=== PATIENT | female | born 1950 | race Caucasian/White ===

== ENCOUNTER → 2017-09-25 | Outpatient (CLI) | payer MEDICARE ==
--- NOTE | 2017-09-25 12:53 | MR ---
EXAMINATION TYPE: MR knee RT wo con DATE OF EXAM: 09/25/2017 12:28 PM COMPARISON: NONE HISTORY: Pain in right knee TECHNIQUE: Multiplanar, multisequence imaging of the right knee is performed. FINDINGS: MEDIAL MENISCUS: Anterior is intact without tear. Oblique tear posterior horn medial meniscus with ex tension to the tibial surface. LATERAL MENISCUS: Anterior and posterior horns are intact without tear. CRUCIATE LIGAMENTS: The anterior and posterior cruciate ligaments are intact and unremarkable. COLLATERAL LIGAMENTS: The medial collateral ligament and lateral collateral ligament complex are intact and unremarkable. EXTENSOR MECHANISM: Visualized quadriceps and patellar tendons are intact. EFFUSION: There is a small suprapatellar joint effusion. POPLITEAL CYST: Gonzalez's cyst noted which measures approximately 3.6 cm in craniocaudal dimension. TRICOMPARTMENT SPACES: Mild degenerative narrowing medial tibiofemoral joint space and patellofemoral joint space. CARTILAGE: The articular cartilage is maintained without abnormal signal or full-thickness defect. BONE MARROW SIGNAL: No focal abnormal marrow signal is appreciated: OTHER: No additional significant abnormality is appreciated. IMPRESSION: 1. Oblique tear posterior horn medial meniscus with extension to the tibial surface. 2. Gonzalez's cyst. 3. Degenerative osteoarthritis.
== END | disposition home or self-care (01) ==
LOC: RADMRIMAIN 11:48
PROVIDERS: ATTEND Orthopaedic Surgery
DX: S83.241A Other tear of medial meniscus, current injury, right knee, initial encounter (principal); M17.11 Unilateral primary osteoarthritis, right knee; M71.21 Synovial cyst of popliteal space [Baker], right knee

== ENCOUNTER 2017-11-08 10:50 | Emergency (ER) | payer MEDICARE ==
[2017-11-08] MEDS ORDERED: SODIUM CHLORIDE 0.9% 1,000 ML IV ONE (11:47)
[2017-11-08] MEDS ORDERED: ACETAMINOPHEN TAB 500 MG TAB PO STA (11:47)
[2017-11-08] MEDS ORDERED: ONDANSETRON 4 MG/2 ML VIAL IVP STA (11:47)
[2017-11-08 12:19] LABS: Basophils % (A) 0 %; Eosinophils # (A) 0.4 k/uL (0-0.7); Eosinophils % (A) 8 %; HCT 33.9 % (34.0-46.0); HGB 11.1 gm/dL (11.4-16.0); Lymphocytes # (A) 1.3 k/uL (1.0-4.8); Lymphocytes % (A) 27 %; MCHC 32.7 g/dL (31.0-37.0); MCV 88.9 fL (80.0-100.0); Mean Platelet Volume 9.1; Monocytes # (A) 0.4 k/uL (0-1.0); Monocytes % (A) 8 %; Neutrophils # (A) 2.5 k/uL (1.3-7.7); Neutrophils % (A) 53 %; Platelet Count 126 k/uL (150-450); RBC 3.81 m/uL (3.80-5.40); RDW 13.9 % (11.5-15.5); WBC 4.7 k/uL (3.8-10.6)
[2017-11-08 12:31] LABS: INR 3.2 (<1.2); Prothrombin Time 28.4 sec (9.0-12.0)
[2017-11-08 12:33] LABS: Albumin 3.1 g/dL (3.5-5.0); Calcium 8.9 mg/dL (8.4-10.2); Potassium 4.8 mmol/L (3.5-5.1); Total Bilirubin 0.3 mg/dL (0.2-1.3); Total Protein 5.5 g/dL (6.3-8.2)
--- NOTE | 2017-11-08 12:43 | CT ---
EXAMINATION TYPE: CT brain [place] con DATE OF EXAM: 11/08/2017 COMPARISON: Previous CT of the brain dated 02/07/2010. HISTORY: Fall CT DLP: 1749.5 mGycm Automated exposure control for dose reduction was used. TECHNIQUE: CT scan of the head and cervical spine are performed without contrast. FINDINGS: BRAIN: There are generalized changes of sulcal prominence and ventriculomegaly, compatible with atrop hic change. There is diffuse periventricular white matter lucency, compatible with chronic white osman er ischemic change. There is no focal lesion, mass effect or midline shift identified. I do not see e vidence of intracranial blood. There is chronic mucoperiosteal thickening involving the right maxillary sinus. The remainder the par anasal sinuses and mastoids are clear. The bony calvarium is intact. IMPRESSION: 1. NO ACUTE INTRACRANIAL ABNORMALITY. 2. ATROPHIC CHANGE. 3. CHRONIC WHITE MATTER ISCHEMIC CHANGE. 4. 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 CERVICAL SPINE: Visualized portions of the lungs are clear. 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 The proximal de scending thoracic aorta measures 3.1 cm. Prevertebral soft tissues are unremarkable. Vertebral body height and alignment are maintained. Atlantoaxial relationships are normal. There is m ild degenerative disc disease at C5-6. There is mild uncovertebral joint disease at this level. The f acets are unremarkable. No definite protrusion is seen. There is an incomplete arch of C1, a normal variant. No fractures are identified. There is left-sided intervertebral foraminal narrowing at C5-6 IMPRESSION: 1. NO ACUTE OSSEOUS LESION. 2. INCOMPLETE ARCH OF C1, A NORMAL VARIANT. 3. MILD DEGENERATIVE CHANGE. 4. LEFT-SIDED INTERVERTEBRAL FORAMINAL NARROWING, C5-6.
--- NOTE | 2017-11-08 13:11 | XR ---
EXAMINATION TYPE: XR shoulder complete RT , 3 VIEWS DATE OF EXAM ORDERED: 11/08/2017 HISTORY: Pain. COMPARISON: None. FINDINGS: No fracture, dislocation or other acute osseous lesion is seen. There are mild degenerativ e changes in the right AC joint. IMPRESSION: 1. NO ACUTE OSSEOUS LESION. 2. MILD DEGENERATIVE CHANGE, RIGHT AC JOINT.
--- NOTE | 2017-11-08 13:12 | ED ---
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 She has a headache no blurred vision no chest pain no shortness of breath this fall was accident there was no loss of consciousness neck injury to the upper or lower extremities no symptoms of TIA or CVA - Related Data Home Medications Medication Instructions Recorded Confirmed Aspirin [Adult Low Dose Aspirin EC] 81 mg PO QAM 12/19/16 11/08/17 Atorvastatin [Lipitor] 20 mg PO HS 12/19/16 11/08/17 Benazepril HCl 10 mg PO HS 12/19/16 11/08/17 Escitalopram [Lexapro] 20 mg PO HS 12/19/16 11/08/17 Ranitidine HCl [Zantac] 150 mg PO QAM 12/19/16 11/08/17 Venlafaxine HCl [Effexor XR] 150 mg PO QAM 12/19/16 11/08/17 amLODIPine [Norvasc] 5 mg PO HS 12/19/16 11/08/17 metFORMIN HCL 1,000 mg PO HS 12/19/16 11/08/17 Warfarin Sodium 2 mg PO MOWETHSA 11/08/17 11/08/17 Warfarin Sodium 4 mg PO SUTUFR 11/08/17 11/08/17 Allergies Allergy/AdvReac Type Severity Reaction Status Date / Time No Known Allergies Allergy Verified 11/08/17 12:42 Review of Systems ROS Statement: Those systems with pertinent positive or pertinent negative responses have been documented in the HPI. ROS Other: All systems not noted in ROS Statement are negative. Past Medical History Past Medical History: Diabetes Mellitus, Hyperlipidemia, Hypertension Additional Past Medical History / Comment(s): new onset diabetes type 10 dec 2016 , blood clots History of Any Multi-Drug Resistant Organisms: None Reported Past Surgical History: Cholecystectomy Past Anesthesia/Blood Transfusion Reactions: No Reported Reaction Past Psychological History: Anxiety Smoking Status: Former smoker General Exam - General Exam Comments Initial Comments: General: The patient is awake and alert, in no distress, and does not appear acutely ill. gCS is 15 Skin: Skin is warm and dry, noticed some coronary bit of a bruising on the right side of the neck at the level of C5 and C6 and she has the bruises over the deltoid and the right side and over the superior part of the scapula Eye: Pupils are equal, round and reactive to light, extra-ocular movements are intact; there is normal conjunctiva bilaterally. Ears, nose, mouth and throat: There are moist mucous membranes and no oral lesions. Neck: The neck is is tender at C5 and C6 Cardiovascular: There is a regular rate and rhythm. No murmur, rub or gallop is appreciated. Respiratory: To auscultation bilateral, no wheezing no rhonchi no distress respiratory rubi noticed Gastrointestinal: Soft, non-distended, non-tender abdomen without masses or organomegaly noted. There is no rebound or guarding present. Bowel sounds are unremarkable. Back: There is no tenderness to palpation in the midline. There is no obvious deformity. Musculoskeletal: Normal ROM, no tenderness, There is no pedal edema. There is no calf tenderness or swelling. No cords were appreciated. Neurological: CN II-XII intact, Cranial nerves III through XII are intact. There are no obvious motor or sensory deficits. Coordination appears grossly intact. Speech is normal. Psychiatric: Cooperative, appropriate mood & affect, normal judgment. Limitations: no limitations Course Vital Signs 11/08/17 10:54 Temperature 97.2 F L Pulse Rate 66 Respiratory 17 Rate Blood Pressure 128/59 O2 Sat by Pulse 99 Oximetry Reassessment was done head CT is normal no subdural or epidural noticed cervical spine is without any bony injury INR is 3.2 CBC and comp his metabolic panel are unremarkable him and during reassessment shoulder x-ray was reviewed shoulder x-ray ruled out any fracture Medical Decision Making - Lab Data Result diagrams: 11/08/17 12:07 11/08/17 12:07 Lab Results 11/08/17 11/08/17 11/08/17 Range/Units 12:07 12:07 12:07 WBC 4.7 (3.8-10.6) k/uL RBC 3.81 (3.80-5.40) m/uL Hgb 11.1 L (11.4-16.0) gm/dL Hct 33.9 L (34.0-46.0) % MCV 88.9 (80.0-100.0) fL MCH 29.0 (25.0-35.0) pg MCHC 32.7 (31.0-37.0) g/dL RDW 13.9 (11.5-15.5) % Plt Count 126 L (150-450) k/uL Neutrophils % 53 % Lymphocytes % 27 % Monocytes % 8 % Eosinophils % 8 % Basophils % 0 % Neutrophils # 2.5 (1.3-7.7) k/uL Lymphocytes # 1.3 (1.0-4.8) k/uL Monocytes # 0.4 (0-1.0) k/uL Eosinophils # 0.4 (0-0.7) k/uL Basophils # 0.0 (0-0.2) k/uL PT 28.4 H (9.0-12.0) sec INR 3.2 H (<1.2) Sodium 144 (137-145) mmol/L Potassium 4.8 (3.5-5.1) mmol/L Chloride 109 H (98-107) mmol/L Carbon Dioxide 25 (22-30) mmol/L Anion Gap 10 mmol/L BUN 23 H (7-17) mg/dL Creatinine 0.93 (0.52-1.04) mg/dL Est GFR (CKD-EPI)AfAm 74 (>60 ml/min/1.73 sqM) Est GFR (CKD-EPI)NonAf 64 (>60 ml/min/1.73 sqM) Glucose 97 (74-99) mg/dL Calcium 8.9 (8.4-10.2) mg/dL Total Bilirubin 0.3 (0.2-1.3) mg/dL AST 19 (14-36) U/L ALT 26 (9-52) U/L Alkaline Phosphatase 71 (38-126) U/L Total Protein 5.5 L (6.3-8.2) g/dL Albumin 3.1 L (3.5-5.0) g/dL Disposition Clinical Impression: Fall, Concussion, Neck injury, Shoulder contusion Disposition: HOME SELF-CARE Condition: Good Instructions: Fall Prevention for Older Adults (ED) Additional Instructions: Is advised to take Tylenol 1 g by mouth every 6 when necessary, follow-up with the family doctor within the next 2-3 days or come back to ER if symptoms get worse Referrals: Elizabeth Rutledge MD [Primary Care Provider] - 1-2 days
[2017-11-08 13:35] VITALS: BP 127/65; PULSE 57; RESP 16; TEMP 97.8
== END 2017-11-08 13:30 | disposition home or self-care (01) ==
LOC: EC 10:50
DX: S06.0X0A Concussion without loss of consciousness, initial encounter (principal); S40.011A Contusion of right shoulder, initial encounter; S10.93XA Contusion of unspecified part of neck, initial encounter; J32.9 Chronic sinusitis, unspecified; E11.9 Type 2 diabetes mellitus without complications; E78.5 Hyperlipidemia, unspecified; I10 Essential (primary) hypertension; F41.9 Anxiety disorder, unspecified; Z87.891 Personal history of nicotine dependence; Z79.01 Long term (current) use of anticoagulants; Z79.82 Long term (current) use of aspirin; Z79.84 Long term (current) use of oral hypoglycemic drugs; Z79.899 Other long term (current) drug therapy; W18.09XA Striking against other object with subsequent fall, initial encounter
CPT/HCPCS: 36415; 80053; 85025; 85610; 73030; 72125; 70450; 99284; 96374; 96361; J2405

== ENCOUNTER → 2018-01-23 | Outpatient (CLI) | payer MEDICARE ==
--- NOTE | 2018-01-23 13:08 | MM ---
Reason for exam: screening (asymptomatic). Baseline mammogram. Physical Findings: Nurse did not find any significant physical abnormalities on exam. MG 3D Screening Mammo W/Cad Bilateral CC and MLO view(s) were taken. There are scattered fibroglandular densities. Benign calcifications in the left breast. Inferior medial keratosis corresponds to a superficial mass on 3D after physical exam correlation. These results were verbally communicated with the patient and result sheet given to the patient on 01/23/18. ASSESSMENT: Benign, BI-RAD 2 RECOMMENDATION: Routine screening mammogram of both breasts in 1 year.
--- NOTE | 2018-01-23 13:18 | BD ---
EXAMINATION TYPE: Axial Bone Density DATE OF EXAM: 01/23/2018 COMPARISON: NONE CLINICAL HISTORY: Postmenopausal female. Osteoporosis screening. Height: 65 Weight: 236.1 FRAX RISK QUESTIONS: Alcohol (3 or more units per day): no Family History (Parent hip fracture): no Glucocorticoids (More than 3mos): no (Ex: prednisone, prednisolone, methylprednisolone, dexamethasone, and hydrocortisone). History of Fracture in Adulthood: no Secondary Osteoporosis: 1. Type 1 Diabetes: yes 2. Hyperthyroidism: no 3. Menopause before 45: yes 4. Malnutrition: no 5. Chronic liver disease: no Rheumatoid Arthritis: no Current Tobacco Use: no RISK FACTORS HISTORY OF: Active: yes Diet low in dairy products/other sources of calcium: no Postmenopausal woman: age 39 Lost more than 2 inches in height since high school: no MEDICATIONS: arnitidine, warfarin, venlafaxine, amlodipine, escitalopram, atorvastatin, benazepril Additional History: EXAM MEASUREMENTS: Bone mineral densitometry was performed using the [employer] System. Bone mineral density as measured about the Lumbar spine is: ----- L1-L4(G/cm2): 1.090 T Score Values are as follows: ----- L2: -0.3 ----- L3: -0.8 ----- L4: -1.1 ----- L1-L4: -0.8 Bone mineral density : baseline Bone mineral density about the R hip (g/cm2): 0.759 Bone mineral density about the L hip (g/cm2): 0.827 T Score values are as follows: -----R Neck: -2.0 -----L Neck: -1.5 -----R Total: -0.8 -----L Total: -0.3 Bone mineral density : baseline IMPRESSION: Osteopenia (T Score between -2.5 and -1). There is slightly increased risk of fracture and the patient may be considered for treatment. Re-Screen 2-5 years. NOTE: T-SCORE=SD OF THE YOUNG ADULT MEAN.
== END | disposition home or self-care (01) ==
LOC: RADMAMWWP 12:07
PROVIDERS: ATTEND Family Medicine
DX: Z12.31 Encounter for screening mammogram for malignant neoplasm of breast (principal); M85.80 Other specified disorders of bone density and structure, unspecified site; Z78.0 Asymptomatic menopausal state
CPT/HCPCS: 77063; 77067; 77080

== ENCOUNTER → 2018-03-13 | Day surgery (SDC) | payer MEDICARE ==
[2018-03-10 11:10] VITALS: BMI 37.9
[~2018-03-13] MED LIST: LACTATED RINGERS 1,000 ML IV SCH; LIDOCAINE 1% 20 ML VIAL (10MG/ML) FOR IV START INTRADERMA ONE; PROPOFOL 10 MG/ML 20 ML VIAL IV ONE
[2018-03-13 07:24] VITALS: TEMP 98.1
[2018-03-13 07:38] LABS: Glucose,Whole Blood 118 mg/dL (75-99)
--- NOTE | 2018-03-13 08:19 | P.PCN ---
Date of Procedure: 03/13/18 Procedure(s) Performed: BRIEF HISTORY: Patient is a 68-year-old pleasant white female, scheduled for an elective colonoscopy as a part of screening for colorectal neoplasia PROCEDURE PERFORMED: Colonoscopy with snare polypectomy. PREOPERATIVE DIAGNOSIS: Screening for colon cancer. IV sedation per Anesthesia. PROCEDURE: After informed consent was obtained, the patient, was brought into the endoscopy unit. IV sedation was administered by Anesthesia under continuous monitoring. Digital rectal examination was normal. Initially the Olympus CF- 160 flexible video colonoscope was then inserted in the rectum, gradually advanced into the cecum without any difficulty. Careful examination was performed as the scope was gradually being withdrawn. Ileocecal valve and the appendiceal orifice were visualized and appeared normal. Prep was excellent. In the base of the cecum there was a 5 mm polyp and to 7 mm sessile polyps removed by snare polypectomy. In the hepatic flexure there was a 5 mm and 7 mm polyp removed by snare polypectomy. In the transverse colon there were 2, small sessile 5 mm polyps and by snare polypectomy. In the sigmoid colon there was a 1 cm pedunculated polyp removed by snare polypectomy. In the rectum there were 2 small sessile 5 mm polyps removed by snare polypectomy. Retroflexion was performed in the rectum and no lesions were seen. The patient tolerated the procedure well. IMPRESSION: 5 mm, 7 mm 2 cecal polyp status post polypectomy 5 mm and 7 mm sessile hepatic flexure polyps status post polypectomy 5 mm 2 transverse colon polyps status post polypectomy 1 cm sigmoid colon polyp serous was snare polypectomy 5 mm x 2 rectal polyps status post polypectomy Small internal hemorrhoids. RECOMMENDATIONS: Findings of this examination were discussed with the patient as well as his family. She was advised to follow with the biopsy results. If the biopsy shows a tubular adenoma, she can have a repeat colonoscopy in 3 years.
[2018-03-13 08:42] VITALS: BP 153/79; PULSE 68; RESP 16
== END ==
LOC: ORWHC2ENDO 06:50
PROVIDERS: ATTEND Internal Medicine Gastroenterology
DX: Z12.11 Encounter for screening for malignant neoplasm of colon (principal); D12.0 Benign neoplasm of cecum; D12.3 Benign neoplasm of transverse colon; D12.5 Benign neoplasm of sigmoid colon; K62.1 Rectal polyp; K21.9 Gastro-esophageal reflux disease without esophagitis; I10 Essential (primary) hypertension; E78.5 Hyperlipidemia, unspecified; E11.9 Type 2 diabetes mellitus without complications; Z79.84 Long term (current) use of oral hypoglycemic drugs; Z86.718 Personal history of other venous thrombosis and embolism; Z79.01 Long term (current) use of anticoagulants; Z79.82 Long term (current) use of aspirin; Z79.899 Other long term (current) drug therapy
CPT/HCPCS: 88305; 45385; J2704

== ENCOUNTER → 2018-03-27 | Outpatient (CLI) | payer MEDICARE ==
[2018-03-27 13:01] LABS: INR 2.2 (<1.2); Prothrombin Time 19.9 sec (9.0-12.0)
== END | disposition home or self-care (01) ==
LOC: LABWHC1 11:44
PROVIDERS: ATTEND Family Medicine
DX: I26.99 Other pulmonary embolism without acute cor pulmonale (principal)
CPT/HCPCS: 36415; 85610

== ENCOUNTER 2018-12-25 13:15 | Emergency (ER) | payer MEDICARE ==
--- NOTE | 2018-12-25 13:54 | ED ---
Fall HPI - General Chief Complaint: Fall Stated Complaint: Fall Time Seen by Provider: 12/25/18 13:50 Source: patient, family, RN notes reviewed, old records reviewed Mode of arrival: wheelchair - History of Present Illness Initial Comments: This is a 66-year-old female the ER status post fall. Patient a fall from standing if he tripped over a fan. Patient is on blood thinners coming the ER for evaluation. Patient did not hit her head no loss of consciousness. No neck pain. Patient fell over the fan fell forward landing on her right wrist and left knee mild abrasion to left knee no bleeding. Patient is able to ambulate history of multiple falls. No symptoms of lightheadedness dizziness or weakness prior to fall no chest pain or shortness of breath MD Complaint: fall -: minutes(s) Fall From: standing When Fall Occurred: 1 hour [employer] Fall Witnessed: yes, by family Place Fall Occurred: home Loss of Consciousness: none Prolonged Down Time?: no Symptoms Prior to Fall: none Location - Extremities: Left: Knee, Right: Forearm Severity: moderate Severity scale (1-10): 3 Quality: aching Context: tripped/slipped Associated Symptoms: denies - Related Data Home Medications Medication Instructions Recorded Confirmed Atorvastatin [Lipitor] 20 mg PO HS 12/19/16 12/25/18 Benazepril HCl 10 mg PO HS 12/19/16 12/25/18 Ranitidine HCl [Zantac] 150 mg PO QAM 12/19/16 12/25/18 Venlafaxine HCl [Effexor XR] 150 mg PO QAM 12/19/16 12/25/18 metFORMIN HCL 500 mg PO BID 12/19/16 12/25/18 Warfarin Sodium 2 mg PO MOWETHSA 11/08/17 12/25/18 Warfarin Sodium 4 mg PO SUTUFR 11/08/17 12/25/18 Allergies Allergy/AdvReac Type Severity Reaction Status Date / Time No Known Allergies Allergy Verified 12/25/18 14:03 Review of Systems ROS Statement: Those systems with pertinent positive or pertinent negative responses have been documented in the HPI. ROS Other: All systems not noted in ROS Statement are negative. Past Medical History Past Medical History: Diabetes Mellitus, Hyperlipidemia, Hypertension Additional Past Medical History / Comment(s): new onset diabetes type 10 dec 2016, blood clots History of Any Multi-Drug Resistant Organisms: None Reported Past Surgical History: Cholecystectomy Past Anesthesia/Blood Transfusion Reactions: No Reported Reaction Past Psychological History: Anxiety Smoking Status: Former smoker Past Alcohol Use History: None Reported Past Drug Use History: None Reported General Exam - General Exam Comments Initial Comments: Patient has no pain over type triquetrum which was concern for possible fracture Limitations: no limitations General appearance: alert, in no apparent distress Head exam: Present: atraumatic, normocephalic, normal inspection Eye exam: Present: normal appearance, PERRL, EOMI. Absent: scleral icterus, conjunctival injection, periorbital swelling ENT exam: Present: normal exam, mucous membranes moist Neck exam: Present: normal inspection. Absent: tenderness, meningismus, lymphadenopathy Respiratory exam: Present: normal lung sounds bilaterally. Absent: respiratory distress, wheezes, rales, rhonchi, stridor Cardiovascular Exam: Present: regular rate, normal rhythm, normal heart sounds. Absent: systolic murmur, diastolic murmur, rubs, gallop, clicks GI/Abdominal exam: Present: soft, normal bowel sounds. Absent: distended, tenderness, guarding, rebound, rigid Extremities exam: Present: normal inspection, full ROM, normal capillary refill. Absent: tenderness, pedal edema, joint swelling, calf tenderness Back exam: Present: normal inspection Neurological exam: Present: alert, oriented X3, CN II-XII intact Psychiatric exam: Present: normal affect, normal mood Skin exam: Present: warm, dry, intact, normal color. Absent: rash Course Vital Signs 12/25/18 12/25/18 13:27 15:33 Temperature 98.4 F 98.5 F Pulse Rate 64 69 Respiratory 20 18 Rate Blood Pressure 160/81 152/66 O2 Sat by Pulse 99 98 Oximetry - Reevaluation(s) Reevaluation #1: 12/25/18 15:42 Medical records reviewed Reevaluation #2: 12/25/18 15:42 Patient is ambulating without difficulty Medical Decision Making - Radiology Data Radiology results: report reviewed (X-ray right wrist, x-ray left knee negative for traumatic injury), image reviewed Disposition Clinical Impression: Fall, Wrist injury, Knee contusion, Wrist contusion Disposition: HOME SELF-CARE Condition: Good Instructions (If sedation given, give patient instructions): Fall Prevention for Older Adults (ED), Contusion in Adults (ED) Is patient prescribed a controlled substance at d/c from ED?: No Referrals: Elizabeth Rutledge MD [Primary Care Provider] - 1-2 days
--- NOTE | 2018-12-25 14:47 | XR ---
Left knee HISTORY: Trauma and pain 3 views of the left knee Bone mineralization, joint spaces and alignment are maintained. No evident joint effusion. There are vascular calcifications present. IMPRESSION: No fracture or dislocation.
--- NOTE | 2018-12-25 14:49 | XR ---
Right wrist HISTORY: Trauma and pain 4 views of the right wrist Bone mineralization, joint spaces, alignment are maintained. Soft tissue swelling is present. At the dorsal aspect of the wrist and question a small ossific density. IMPRESSION: No dislocation is evident. Question small triquetral fracture Follow-up as indicated.
[2018-12-25 15:34] VITALS: BP 152/66; PULSE 69; RESP 18; TEMP 98.5
== END 2018-12-25 15:33 | disposition home or self-care (01) ==
LOC: EC 13:15
DX: S80.02XA Contusion of left knee, initial encounter (principal); S60.211A Contusion of right wrist, initial encounter; E11.9 Type 2 diabetes mellitus without complications; E78.5 Hyperlipidemia, unspecified; I10 Essential (primary) hypertension; F41.9 Anxiety disorder, unspecified; Z87.891 Personal history of nicotine dependence; Z79.84 Long term (current) use of oral hypoglycemic drugs; Z79.01 Long term (current) use of anticoagulants; Z79.899 Other long term (current) drug therapy; W18.09XA Striking against other object with subsequent fall, initial encounter
CPT/HCPCS: 99284

== ENCOUNTER 2019-01-01 07:23 | Day surgery (SDC) | payer MEDICARE ==
[2018-12-31 09:53] VITALS: BMI 39.1
[~2019-01-01 07:23] MED LIST changes: -LIDOCAINE 1% 20 ML VIAL (10MG/ML) FOR IV START INTRADERMA ONE; -PROPOFOL 10 MG/ML 20 ML VIAL IV ONE
[2019-01-01 07:42] VITALS: TEMP 97
[2019-01-01 07:54] LABS: Glucose,Whole Blood 107 mg/dL (75-99)
[2019-01-01] MEDS ORDERED: LIDOCAINE 1% INJ 10MG/ML (20 ML MDV) ONE (08:15)
[2019-01-01] MEDS ORDERED: PROPOFOL 10 MG/ML 20 ML VIAL IV ONE (08:15)
--- NOTE | 2019-01-01 08:28 | P.PCN ---
Date of Procedure: 01/01/19 Procedure(s) Performed: BRIEF HISTORY: Patient is a 68-year-old, pleasant, white female, scheduled for an upper endoscopy as part of evaluation of iron deficiency anemia. She denies any GI symptoms. She had a colonoscopy in March of the duodenum was a small colon polyps. She is scheduled for an upper endoscopy to evaluate for upper GI source of blood loss. PROCEDURE PERFORMED: Esophagogastroduodenoscopy with biopsy. PREOPERATIVE DIAGNOSIS: Iron Deficiency anemia. IV sedation per anesthesia. PROCEDURE: After informed consent was obtained, the patient was brought into the endoscopy unit. IV sedation was administered by Anesthesia under continuous monitoring. Initially the Olympus GIF-140 video endoscope was inserted into the mouth. Esophagus intubated without any difficulty. It was gradually advanced into the stomach and duodenum and carefully examined. Biopsies were done from the second part of the duodenum to evaluate for celiac disease. Along the duodenal sweep there was a 1 cm polyp that was biopsied. The scope at this time was withdrawn to the stomach, adequately insufflated with air, and upon careful examination, mucosa of the antrum had a small superficial ulceration in the pyloric area and biopsies were done from this area. The body, cardia and the fundus appeared normal. The scope was then withdrawn into the esophagus. The GE junction was located at 39 cm from the incisors. The esophagus appeared normal. There were no erosions or ulcerations seen and the patient tolerated the procedure well. IMPRESSION: 1. 5 mm superficial antral ulcer status post biopsy. 2. 1 cm duodenal polyp along the duodenal sweep status post multiple biopsies.. RECOMMENDATIONS: The findings of this examination were discussed with the patient as well as her family. She was advised to follow with the biopsy results. She will resume Coumadin today. She will be given a prescription for Prilosec 20 mg daily.
[2019-01-01 09:15] VITALS: RESP 19
[2019-01-01 09:17] VITALS: BP 178/83; PULSE 74
== END 2019-01-01 09:16 | disposition home or self-care (01) ==
LOC: ORWHC2ENDO 07:23
PROVIDERS: ATTEND Internal Medicine Gastroenterology
DX: K29.50 Unspecified chronic gastritis without bleeding (principal); K31.7 Polyp of stomach and duodenum; K25.9 Gastric ulcer, unspecified as acute or chronic, without hemorrhage or perforation; K31.89 Other diseases of stomach and duodenum; D50.9 Iron deficiency anemia, unspecified; I10 Essential (primary) hypertension; E78.5 Hyperlipidemia, unspecified; I48.91 Unspecified atrial fibrillation; Z86.718 Personal history of other venous thrombosis and embolism; K21.9 Gastro-esophageal reflux disease without esophagitis; E11.9 Type 2 diabetes mellitus without complications; Z79.84 Long term (current) use of oral hypoglycemic drugs; Z86.010 Personal history of colon polyps; Z79.01 Long term (current) use of anticoagulants; Z79.899 Other long term (current) drug therapy
CPT/HCPCS: 43239; J2001; J2704; 88305

== ENCOUNTER 2019-04-29 14:36 | Emergency (ER) | payer MEDICARE ==
[2019-04-29 15:23] VITALS: TEMP 98.1
--- NOTE | 2019-04-29 17:33 | CT ---
EXAMINATION TYPE: CT brain wo con DATE OF EXAM: 04/29/2019 COMPARISON: 11/08/2017 HISTORY: fall, pain posterior head CT DLP: 1099.4 mGycm Automated exposure control for dose reduction was used. FINDINGS: There is some cerebral cortical atrophy. There is no mass effect nor midline shift. There is no sign of intracranial hemorrhage. Calvarium is intact. Skull base appears intact. IMPRESSION: CEREBRAL ATROPHY. NO ACUTE INTRACRANIAL ABNORMALITY. NO CHANGE.
--- NOTE | 2019-04-29 17:34 | XR ---
EXAMINATION TYPE: XR foot complete RT DATE OF EXAM: 04/29/2019 COMPARISON: NONE HISTORY: Pain TECHNIQUE: 3 views FINDINGS: There is plantar calcaneal spurring. Metatarsals are intact. I see no fracture nor dislocat ion. There are no erosions. IMPRESSION: No acute abnormality the right foot. Calcaneal spurring.
--- NOTE | 2019-04-29 17:35 | XR ---
EXAMINATION TYPE: XR ankle limited RT DATE OF EXAM: 04/29/2019 COMPARISON: NONE HISTORY: Foot pain and ankle pain TECHNIQUE: 2 views FINDINGS: There is mild soft tissue swelling over the lateral malleolus. Ankle mortise is anatomic. I see no fracture. There is calcaneal spurring. IMPRESSION: Mild soft tissue swelling. No fracture seen.
--- NOTE | 2019-04-29 18:18 | CT ---
EXAMINATION TYPE: CT cervical spine wo con DATE OF EXAM: 04/29/2019 COMPARISON: None HISTORY: Fall today. Neck pain. CT DLP: 592.6 mGycm Automated exposure control for dose reduction was used. TECHNIQUE: CT scan of the cervical spine is obtained without contrast, axial images are obtained, sa gittal and coronal reformatted images are also reviewed. FINDINGS: Vertebra have normal alignment. Disc spaces are fairly normal. There is slight narrowing of C5-6 disc. Posterior elements are intact. Facet joints are intact. Skull base is intact. There is no evidence of a fracture. There is 4 cm aneurysm of the ascending aorta. IMPRESSION: CT scan of the cervical spine is normal for age. Mild aneurysm of the ascending aorta. No fracture.
[2019-04-29 18:32] LABS: Basophils % (A) 1 %; Eosinophils # (A) 0.2 k/uL (0-0.7); Eosinophils % (A) 4 %; HCT 36.4 % (34.0-46.0); HGB 11.5 gm/dL (11.4-16.0); Lymphocytes # (A) 1.6 k/uL (1.0-4.8); Lymphocytes % (A) 27 %; MCH 27.9 pg (25.0-35.0); MCHC 31.5 g/dL (31.0-37.0); MCV 88.6 fL (80.0-100.0); Mean Platelet Volume 8.7; Monocytes # (A) 0.5 k/uL (0-1.0); Monocytes % (A) 8 %; Neutrophils # (A) 3.4 k/uL (1.3-7.7); Neutrophils % (A) 57 %; Platelet Count 134 k/uL (150-450); RBC 4.11 m/uL (3.80-5.40); RDW 14.9 % (11.5-15.5); WBC 5.9 k/uL (3.8-10.6)
[2019-04-29 18:40] LABS: INR 1.8 (<1.2); Prothrombin Time 17.8 sec (9.0-12.0)
[2019-04-29 18:43] LABS: Albumin 3.5 g/dL (3.5-5.0); Calcium 8.8 mg/dL (8.4-10.2); Potassium 4.2 mmol/L (3.5-5.1); Total Bilirubin 0.3 mg/dL (0.2-1.3); Total Protein 5.9 g/dL (6.3-8.2)
[2019-04-29] MEDS ORDERED: ACETAMINOPHEN TAB 325 MG TAB PO STA (18:52)
--- NOTE | 2019-04-29 18:58 | ED ---
Fall HPI - General Chief Complaint: Fall Stated Complaint: Fall, head & ankle injury Time Seen by Provider: 04/29/19 15:20 Source: patient Mode of arrival: wheelchair - History of Present Illness Initial Comments: The patient is a 69-year-old female with past history of DVT on Coumadin who presents to the emergency department after a mechanical fall. The patient was originally doing something which required her to be on her knees. She then went to stand up. Her knees gave out on her and she fell backwards hitting the back of her head on the floor. There was no loss of consciousness. The patient only has a mild headache. She is on Coumadin and therefore her family brought her in to the emergency room for evaluation. The patient also had a twisting injury to her right ankle. She was unable to bear weight on the right ankle. She did not take anything for pain. The patient denies any visual changes or photophobia. She denies any neck pain or stiffness. No unilateral numbness or weakness. She denies a syncopal episode. No back or flank pain. Denies abdominal pain. No chest pain or shortness of breath. She denies any upper extremity pain. No hip or knee pain. There are no other alleviating, precipitating or modifying factors - Related Data Home Medications Medication Instructions Recorded Confirmed Atorvastatin [Lipitor] 20 mg PO DAILY 12/19/16 04/29/19 Benazepril HCl 10 mg PO DAILY 12/19/16 04/29/19 Ranitidine HCl [Zantac] 150 mg PO BID 12/19/16 04/29/19 Venlafaxine HCl [Effexor XR] 150 mg PO DAILY 12/19/16 04/29/19 metFORMIN HCL 500 mg PO BID 12/19/16 04/29/19 Warfarin Sodium 2 mg PO MOWEFRSA 11/08/17 04/29/19 Warfarin Sodium 4 mg PO SUTUTH 11/08/17 04/29/19 Aspirin 81 mg PO DAILY 04/29/19 04/29/19 Escitalopram [Lexapro] 20 mg PO DAILY 04/29/19 04/29/19 Allergies Allergy/AdvReac Type Severity Reaction Status Date / Time No Known Allergies Allergy Verified 05/01/19 06:51 Review of Systems ROS Statement: Those systems with pertinent positive or pertinent negative responses have been documented in the HPI. ROS Other: All systems not noted in ROS Statement are negative. Past Medical History Past Medical History: Diabetes Mellitus, Deep Vein Thrombosis (DVT), Hyperlipidemia, Hypertension Additional Past Medical History / Comment(s): anemia, History of Any Multi-Drug Resistant Organisms: None Reported Past Surgical History: Cholecystectomy Past Anesthesia/Blood Transfusion Reactions: No Reported Reaction Past Psychological History: Anxiety, Depression Smoking Status: Former smoker Past Alcohol Use History: None Reported Past Drug Use History: None Reported General Exam Limitations: no limitations General appearance: alert, in no apparent distress Head exam: Present: atraumatic, normocephalic, normal inspection, other (no open abrasions or lacerations) Eye exam: Present: normal appearance, PERRL, EOMI. Absent: scleral icterus, conjunctival injection, periorbital swelling ENT exam: Present: normal exam, mucous membranes moist Neck exam: Present: normal inspection. Absent: tenderness, meningismus, lymphadenopathy Respiratory exam: Present: normal lung sounds bilaterally. Absent: respiratory distress, wheezes, rales, rhonchi, stridor Cardiovascular Exam: Present: regular rate, normal rhythm, normal heart sounds. Absent: systolic murmur, diastolic murmur, rubs, gallop, clicks GI/Abdominal exam: Present: soft, normal bowel sounds. Absent: distended, tenderness, guarding, rebound, rigid Extremities exam: Present: normal inspection, tenderness (tenderness medial and lateral malleolus right ankle. Painful dorsiflexion and plantarflexion however p atient does have intact strength. Negative anterior drawer sign), normal capillary refill. Absent: pedal edema, joint swelling, calf tenderness Back exam: Present: normal inspection Neurological exam: Present: alert, oriented X3, CN II-XII intact Psychiatric exam: Present: normal affect, normal mood Skin exam: Present: warm, dry, intact, normal color. Absent: rash Course Vital Signs 04/29/19 04/29/19 04/29/19 15:17 16:55 18:25 Temperature 98.1 F Pulse Rate 77 70 62 Respiratory 18 18 18 Rate Blood Pressure 161/76 135/87 159/84 O2 Sat by Pulse 96 96 98 Oximetry 04/29/19 19:36 Temperature Pulse Rate 67 Respiratory 20 Rate Blood Pressure 146/78 O2 Sat by Pulse 100 Oximetry Procedures - Orthopedic Splinting/Casting Injury #1 Side: right Lower Extremity Injury Location: short leg, ankle Medical Decision Making - Medical Decision Making Upon arrival the patient is placed into room 4. A thorough history and physical exam was performed. I did recommend a CT of the patient's brain and cervical spine as well as an x-ray of the patient's right ankle and foot. I recommended laboratory studies as the patient is on Coumadin. Upon review of the results they are discussed with the patient. Hemoglobin is 11.5. Platelets 134. PT is 17.8 INR 1.8. Creatinine 1.27. Glucose 133. 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 X-ray of the patient's right ankle demonstrate soft tissue swelling around the lateral malleolus however no fractures. X-ray of the patient's right foot demonstrates no acute abnormality with calcaneal spurring. CT of the patient's brain demonstrates cerebral atrophy with no acute intracranial abnormality. The patient does have a subtherapeutic INR at this time. She remains without focal neurologic deficit. The patient does have pain in the right ankle I did recommend splinting the ankle. She is to rest, ice and elevate the extremity. She is to follow-up with her primary care physician or the orthopedic surgeons for further evaluation. I did write patient a prescription for a walker. She was given Tylenol for pain control. The patient will be discharged home at this time. If she has any new or worsening symptoms she should return to the emergency room. The patient was discharged home in stable condition - Lab Data Result diagrams: 04/29/19 18:21 04/29/19 18:21 Lab Results 04/29/19 04/29/19 04/29/19 Range/Units 18:21 18:21 18:21 WBC 5.9 (3.8-10.6) k/uL RBC 4.11 (3.80-5.40) m/uL Hgb 11.5 (11.4-16.0) gm/dL Hct 36.4 (34.0-46.0) % MCV 88.6 (80.0-100.0) fL MCH 27.9 (25.0-35.0) pg MCHC 31.5 (31.0-37.0) g/dL RDW 14.9 (11.5-15.5) % Plt Count 134 L (150-450) k/uL Neutrophils % 57 % Lymphocytes % 27 % Monocytes % 8 % Eosinophils % 4 % Basophils % 1 % Neutrophils # 3.4 (1.3-7.7) k/uL Lymphocytes # 1.6 (1.0-4.8) k/uL Monocytes # 0.5 (0-1.0) k/uL Eosinophils # 0.2 (0-0.7) k/uL Basophils # 0.0 (0-0.2) k/uL PT 17.8 H (9.0-12.0) sec INR 1.8 H (<1.2) Sodium 139 (137-145) mmol/L Potassium 4.2 (3.5-5.1) mmol/L Chloride 107 (98-107) mmol/L Carbon Dioxide 25 (22-30) mmol/L Anion Gap 7 mmol/L BUN 29 H (7-17) mg/dL Creatinine 1.27 H (0.52-1.04) mg/dL Est GFR (CKD-EPI)AfAm 50 (>60 ml/min/1.73 sqM) Est GFR (CKD-EPI)NonAf 43 (>60 ml/min/1.73 sqM) Glucose 133 H (74-99) mg/dL Calcium 8.8 (8.4-10.2) mg/dL Total Bilirubin 0.3 (0.2-1.3) mg/dL AST 24 (14-36) U/L ALT 14 (9-52) U/L Alkaline Phosphatase 70 (38-126) U/L Total Protein 5.9 L (6.3-8.2) g/dL Albumin 3.5 (3.5-5.0) g/dL Disposition Clinical Impression: Fall, Right ankle pain, Blunt head trauma, Anticoagulated on Coumadin Disposition: HOME SELF-CARE Condition: Stable Instructions (If sedation given, give patient instructions): Ankle Sprain (ED), Concussion (ED) Additional Instructions: Rest, ice and elevate your right ankle. Follow up with the orthopedic surgeon for reevaluation. Do not ambulate on your right ankle if it is painful. You may need repeat imaging. Return to the ER for any new or worsening symptoms Is patient prescribed a controlled substance at d/c from ED?: No Referrals: Elizabeth Rutledge MD [Primary Care Provider] - 1-2 days Time of Disposition: 18:56
[2019-04-29 19:37] VITALS: BP 146/78; PULSE 67; RESP 20
== END 2019-04-29 19:38 | disposition home or self-care (01) ==
LOC: EC 14:36
DX: S09.8XXA Other specified injuries of head, initial encounter (principal); M25.571 Pain in right ankle and joints of right foot; I71.2 Thoracic aortic aneurysm, without rupture; S99.911A Unspecified injury of right ankle, initial encounter; G31.9 Degenerative disease of nervous system, unspecified; E78.5 Hyperlipidemia, unspecified; I10 Essential (primary) hypertension; M77.31 Calcaneal spur, right foot; E11.9 Type 2 diabetes mellitus without complications; Z79.82 Long term (current) use of aspirin; Z79.899 Other long term (current) drug therapy; Z79.01 Long term (current) use of anticoagulants; Z79.84 Long term (current) use of oral hypoglycemic drugs; Z86.718 Personal history of other venous thrombosis and embolism; Z87.891 Personal history of nicotine dependence; W19.XXXA Unspecified fall, initial encounter; X50.1XXA Overexertion from prolonged static or awkward postures, initial encounter; Y92.009 Unspecified place in unspecified non-institutional (private) residence as the place of occurrence of the external cause
CPT/HCPCS: 29515; 36415; 70450; 72125; 80053; 85025; 85610; 99284

== ENCOUNTER 2019-05-01 06:45 | Emergency (ER) | payer MEDICARE ==
[2019-05-01 06:55] VITALS: BP 131/73; PULSE 72; RESP 18; TEMP 97.4
--- NOTE | 2019-05-01 07:14 | ED ---
Lower Extremity Injury HPI - General Chief Complaint: Extremity Injury, Lower Stated Complaint: rt foot pain/revisit Time Seen by Provider: 05/01/19 07:00 Source: patient, RN notes reviewed Mode of arrival: wheelchair Limitations: physical limitation - History of Present Illness Initial Comments: This is a 69-year-old female presents emergency Department chief complaint of right foot and ankle pain. Patient seen here 2 days ago had her ankle and foot splinted secondary to pain after ankle sprain. Patient states that she noticed her toes were discolored she had a burning sensation. Patient did not unwrap her foot. Patient denies any new trauma. Patient did not follow-up with orthopedics. - Related Data Home Medications Medication Instructions Recorded Confirmed Atorvastatin [Lipitor] 20 mg PO DAILY 12/19/16 04/29/19 Benazepril HCl 10 mg PO DAILY 12/19/16 04/29/19 Ranitidine HCl [Zantac] 150 mg PO BID 12/19/16 04/29/19 Venlafaxine HCl [Effexor XR] 150 mg PO DAILY 12/19/16 04/29/19 metFORMIN HCL 500 mg PO BID 12/19/16 04/29/19 Warfarin Sodium 2 mg PO MOWEFRSA 11/08/17 04/29/19 Warfarin Sodium 4 mg PO SUTUTH 11/08/17 04/29/19 Aspirin 81 mg PO DAILY 04/29/19 04/29/19 Escitalopram [Lexapro] 20 mg PO DAILY 04/29/19 04/29/19 Allergies Allergy/AdvReac Type Severity Reaction Status Date / Time No Known Allergies Allergy Verified 05/01/19 06:51 Review of Systems ROS Statement: Those systems with pertinent positive or pertinent negative responses have been documented in the HPI. ROS Other: All systems not noted in ROS Statement are negative. 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 Past Anesthesia/Blood Transfusion Reactions: No Reported Reaction Past Psychological History: Anxiety, Depression Smoking Status: Former smoker Past Alcohol Use History: None Reported Past Drug Use History: None Reported General Exam Limitations: physical limitation General appearance: alert, in no apparent distress Head exam: Present: atraumatic, normocephalic, normal inspection Neck exam: Present: normal inspection, full ROM. Absent: tenderness, meningismus, lymphadenopathy Respiratory exam: Present: normal lung sounds bilaterally. Absent: respiratory distress, wheezes, rales, rhonchi, stridor Cardiovascular Exam: Present: regular rate, normal rhythm, normal heart sounds. Absent: systolic murmur, diastolic murmur, rubs, gallop, clicks Extremities exam: Present: other (Right foot and ankle were unwrapped, splint removed, there is some discoloration and decreased sensation though this is all resolved after splint removing, strong bounding pedal pulses are equal bilaterally, there is no calf tenderness no discoloration there is mild swelling over the lateral malleoli region) Course Vital Signs 05/01/19 06:51 Temperature 97.4 F L Pulse Rate 72 Respiratory 18 Rate Blood Pressure 131/73 O2 Sat by Pulse 96 Oximetry Medical Decision Making - Medical Decision Making 69-year-old female presented for right ankle pain. Patient splint was on too tight this was removed her symptoms resolved. She does have a walking boot at home which she will placed on rather than the splint she is strongly advised to follow-up with orthopedics and return for any worsening symptoms. Disposition Clinical Impression: Right ankle sprain Disposition: HOME SELF-CARE Condition: Stable Instructions (If sedation given, give patient instructions): Ankle Sprain (ED) Additional Instructions: Please return to the Emergency Department if symptoms worsen or any other concerns. Is patient prescribed a controlled substance at d/c from ED?: No Referrals: Elizabeth Rutledge MD [Primary Care Provider] - 1-2 days Time of Disposition: 07:14
== END 2019-05-01 07:29 | disposition home or self-care (01) ==
LOC: EC 06:45
DX: S93.401A Sprain of unspecified ligament of right ankle, initial encounter (principal); E78.5 Hyperlipidemia, unspecified; E11.9 Type 2 diabetes mellitus without complications; I10 Essential (primary) hypertension; F41.9 Anxiety disorder, unspecified; F32.9 Major depressive disorder, single episode, unspecified; Z79.01 Long term (current) use of anticoagulants; Z79.82 Long term (current) use of aspirin; Z79.84 Long term (current) use of oral hypoglycemic drugs; Z79.899 Other long term (current) drug therapy; Z87.891 Personal history of nicotine dependence; Z86.718 Personal history of other venous thrombosis and embolism; W18.30XA Fall on same level, unspecified, initial encounter
CPT/HCPCS: 99283

== ENCOUNTER → 2019-08-03 | Outpatient (CLI) | payer MEDICARE ==
[2019-08-03 11:58] LABS: INR 2.4 (<1.2); Prothrombin Time 23.1 sec (9.0-12.0)
== END | disposition home or self-care (01) ==
LOC: LABWHC1 11:39
PROVIDERS: ATTEND Family Medicine
DX: I82.409 Acute embolism and thrombosis of unspecified deep veins of unspecified lower extremity (principal)
CPT/HCPCS: 36415; 85610

== ENCOUNTER → 2020-03-03 | Outpatient (CLI) | payer MEDICARE ==
[2020-03-03 20:41] LABS: INR 1.38 (0.90-1.11); Prothrombin Time 14.6 sec (9.9-11.9)
== END | disposition home or self-care (01) ==
LOC: LABWHC1 14:33
PROVIDERS: ATTEND Family Medicine
DX: I82.409 Acute embolism and thrombosis of unspecified deep veins of unspecified lower extremity (principal)
CPT/HCPCS: 36415; 85610

== ENCOUNTER 2023-09-22 19:52 | Emergency (ER) | payer MEDICARE, OTHER ==
[2023-09-22 20:07] VITALS: RESP 18; TEMP 97.8
[2023-09-22 22:19] LABS: Basophils % (A) 1 %; Eosinophils # (A) 0.2 k/uL (0-0.7); Eosinophils % (A) 4 %; HCT 38.3 % (34.0-46.0); HGB 12.8 gm/dL (11.4-16.0); Lymphocytes # (A) 1.6 k/uL (1.0-4.8); Lymphocytes % (A) 27 %; MCH 30.3 pg (25.0-35.0); MCHC 33.3 g/dL (31.0-37.0); Mean Platelet Volume 9.4; Monocytes # (A) 0.5 k/uL (0-1.0); Monocytes % (A) 9 %; Neutrophils # (A) 3.4 k/uL (1.3-7.7); Neutrophils % (A) 56 %; Platelet Count 126 k/uL (150-450); RBC 4.21 m/uL (3.80-5.40)
[2023-09-22 22:27] LABS: ALT 17 U/L (4-34); AST 29 U/L (14-36); African American GFR (CKD) 51 (>60 ml/min/1.73 sqM); Albumin 3.5 g/dL (3.5-5.0); Alkaline Phosphatase 101 U/L (38-126); Anion Gap 6 mmol/L; Blood Urea Nitrogen 30 mg/dL (7-17); Calcium 9.1 mg/dL (8.4-10.2); Carbon Dioxide 21 mmol/L (22-30); Chloride 110 mmol/L (98-107); Glucose 125 mg/dL (74-99); Non-African American GFR(CKD) 44 (>60 ml/min/1.73 sqM); Potassium 4.5 mmol/L (3.5-5.1); Sodium 137 mmol/L (137-145); Total Bilirubin 0.6 mg/dL (0.2-1.3); Total Protein 6.1 g/dL (6.3-8.2)
[2023-09-22 23:26] LABS: Amorphous Sediment,Urine Occasional /hpf; Appearance,Urine Clear (Clear); Bilirubin,Urine Negative (Negative); Blood,Urine Negative (Negative); Color,Urine Yellow; Glucose,Urine (UA) Negative (Negative); Hyaline Casts,Urine 23 /lpf (0-2); Ketones,Urine Negative (Negative); Leukocyte Esterase,Urine Moderate (Negative); Mucus,Urine Rare /hpf; Nitrite,Urine Negative (Negative); PH, Urine 5.5 (5.0-8.0); Protein,Urine Trace (Negative); RBC,Urine 2 /hpf (0-5); Squamous Epithelial Cell,Urine 2 /hpf (0-4); Urobilinogen,Urine <2.0 mg/dL (<2.0); WBC,Urine 12 /hpf (0-5)
[2023-09-22 23:43] LABS: Amphetamine Screen,Urine Not Detected (NotDetected); Barbiturate Screen,Urine Not Detected (NotDetected); Benzodiazepines Screen,Urine Not Detected (NotDetected); Cocaine Screen,Urine Not Detected (NotDetected); Methadone Screen, Urine Not Detected (NotDetected); Opiate Screen,Urine Not Detected (NotDetected); Oxycodone Screen, Urine Not Detected (NotDetected); Phencyclidine Screen,Urine Not Detected (NotDetected); Tricyclic Antidepressant,Urine Not Detected (NotDetected); Urn Cannabinoid Scrn Not Detected (NotDetected)
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
[2023-09-23 01:40] LABS: Partial Thromboplastin Time 21.4 sec (22.0-30.0); Prothrombin Time 11.1 sec (10.0-12.5)
[2023-09-23 11:06] VITALS: BP 134/78; PULSE 82
== END 2023-09-23 10:38 | disposition home or self-care (01) ==
LOC: EC 19:52
DX: F32.A Depression, unspecified (principal); F41.9 Anxiety disorder, unspecified; I45.10 Unspecified right bundle-branch block; E11.9 Type 2 diabetes mellitus without complications; I10 Essential (primary) hypertension; E78.5 Hyperlipidemia, unspecified; Z79.899 Other long term (current) drug therapy
CPT/HCPCS: 36415; 80053; 80306; 81001; 82075; 85025; 85610; 85730; 93005; 99285

== ENCOUNTER → 2024-08-24 | Outpatient (CLI) | payer MEDICARE ==
--- NOTE | 2024-08-25 12:22 | MR ---
EXAMINATION TYPE: MR knee RT wo con DATE OF EXAM: 08/24/2024 COMPARISON: Prior MRI right knee September 25, 2017 HISTORY: Right knee medial pain and swelling for one year after falling TECHNIQUE: Multiplanar, multisequence images of the knee is performed without IV contrast. FINDINGS: MEDIAL MENISCUS: Abnormal signal posterior horn extending into the central body with more emaciated a ppearance is now present. LATERAL MENISCUS: Anterior and posterior horns are intact without tear. CRUCIATE LIGAMENTS: The anterior and posterior cruciate ligaments are intact and unremarkable. COLLATERAL LIGAMENTS: The medial collateral ligament and lateral collateral ligament complex are inta ct. Fluid signal redemonstrated surrounding the medial collateral ligament. There is heterogeneous in creased signal in the proximal iliotibial band redemonstrated. EXTENSOR MECHANISM: Visualized quadriceps and patellar tendons are intact. EFFUSION: Small size suprapatellar joint effusion less prominent versus prior. POPLITEAL CYST: Slightly larger multiseptated popliteal/valentino cyst measuring approximately 5.3 cm golden g axis sagittal image 13. TRICOMPARTMENT SPACES: Moderate to severe narrowing patellofemoral compartment is more prominent vers us prior. Persistent mild spurring. Stable mild/moderate narrowing and spurring medial tibiofemoral a nd lateral tibiofemoral compartments. CARTILAGE: More prominent chondromalacia patella with increased areas of full-thickness cartilaginous loss identified. BONE MARROW SIGNAL: New areas of increased T2 signal along the posterior patellar pole. OTHER: Persistent moderate subcutaneous edema anterior superficial infrapatellar level. IMPRESSION: 1. More prominent or interval progression of full thickness tear posterior horn of medial meniscus ex tending into central body. 2. Moderate MCL sprain injury is redemonstrated. 3. Chronic strain injury to the proximal iliotibial band. 4. 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 5. Moderate size multiseptated popliteal cyst slightly increased in size from prior MRI. [facility], , 08/25/2024 12:19 PM
== END | disposition home or self-care (01) ==
LOC: RADMRIMAIN 17:02
PROVIDERS: ATTEND Orthopaedic Surgery
DX: M17.11 Unilateral primary osteoarthritis, right knee (principal); M23.321 Other meniscus derangements, posterior horn of medial meniscus, right knee; M71.21 Synovial cyst of popliteal space [Baker], right knee

== ENCOUNTER 2025-01-11 23:06 | Emergency (ER) | payer MEDICARE ==
[2025-01-11] MEDS: TRANEXAMIC ACID 1,000 MG/10 ML VIAL IRRIGATION ONE (23:26)
[2025-01-11] MEDS: ACETAMINOPHEN TAB 500 MG TAB PO STA (23:53)
[2025-01-12] MEDS: hydrALAZINE HCL 20 MG/ML 1 ML VIAL IVP STA (00:48)
[2025-01-12] MEDS: LIDOCAINE/EPINEPHR/TETRACAINE 5 ML BOTTLE TOPICAL ONE (01:15)
--- NOTE | 2025-01-12 01:59 | ED ---
ENT HPI - General Chief complaint: ENT Stated complaint: Post op issues Time Seen by Provider: 01/11/25 23:14 Source: patient Mode of arrival: wheelchair Limitations: no limitations - History of Present Illness Initial comments: 74-year-old female presenting with chief complaint of bleeding from her surgical site. Patient had skin cancer on her nose removed earlier today and a skin graft. Patient takes warfarin for history of DVT. This evening she has had trickling from the site that family was unable to get to stop at home with pressure alone. Patient is sore from her surgery but otherwise has no other complaints. No injury or trauma since surgery. - Related Data Home Medications Medication Instructions Recorded Confirmed Atorvastatin [Lipitor] 20 mg PO DAILY 12/19/16 04/29/19 Benazepril HCl 10 mg PO DAILY 12/19/16 04/29/19 Ranitidine HCl [Zantac] 150 mg PO BID 12/19/16 04/29/19 Venlafaxine HCl [Effexor XR] 150 mg PO DAILY 12/19/16 04/29/19 metFORMIN HCL [Glucophage] 500 mg PO BID 12/19/16 04/29/19 Warfarin Sodium 2 mg PO MOWEFRSA 11/08/17 04/29/19 Warfarin Sodium 4 mg PO SUTUTH 11/08/17 04/29/19 Aspirin 81 mg PO DAILY 04/29/19 04/29/19 Escitalopram [Lexapro] 20 mg PO DAILY 04/29/19 04/29/19 Allergies Allergy/AdvReac Type Severity Reaction Status Date / Time No Known Allergies Allergy Verified 01/11/25 23:10 Review of Systems ROS Statement: Those systems with pertinent positive or pertinent negative responses have been documented in the HPI. ROS Other: All systems not noted in ROS Statement are negative. 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 Past Anesthesia/Blood Transfusion Reactions: No Reported Reaction Past Psychological History: Anxiety, Depression Smoking Status: Never smoker Past Alcohol Use History: None Reported Past Drug Use History: None Reported General Exam Limitations: no limitations General appearance: alert, in no apparent distress Head exam: Present: other (Patient has postoperative bruising around both eyes. She has numerous sutures to the bridge of the nose and up into the forehead from her procedure earlier today) Eye exam: Present: periorbital swelling Neck exam: Present: normal inspection. Absent: meningismus Respiratory exam: Absent: respiratory distress Cardiovascular Exam: Present: regular rate Neurological exam: Present: alert, oriented X3 Psychiatric exam: Present: normal affect, normal mood Course Vital Signs 01/11/25 01/12/25 01/12/25 23:08 00:40 00:58 Temperature 97.5 F L Pulse Rate 68 Respiratory 18 Rate Blood Pressure 157/97 177/92 163/99 O2 Sat by Pulse 98 Oximetry 01/12/25 01/12/25 01:10 02:01 Temperature 97.9 F Pulse Rate 69 Respiratory 16 Rate Blood Pressure 140/68 136/62 O2 Sat by Pulse Oximetry Medical Decision Making - Medical Decision Making Was pt. sent in by a medical professional or institution (, PA, SUPERVISOR SILVERING DEPARTMENT, urgent care, hospital, or long term...) When possible be specific @ -No Did you speak to anyone other than the patient for history (EMS, parent, family, police, friend...)? What history was obtained from this source @ -Daughters Did you review nursing and triage notes (agree or disagree)? Why? @ -I reviewed and agree with nursing and triage notes Were old charts reviewed (outside hosp., previous admission, EMS record, old EKG, old radiological studies, urgent care reports/EKG's, long term records)? Report findings @ -No old charts were reviewed Differential Diagnosis (chest pain, altered mental status, abdominal pain women, abdominal pain men, vaginal bleeding, weakness, fever, dyspnea, syncope, headache, dizziness, GI bleed, back pain, seizure, CVA, palpatations, mental health, musculoskeletal)? @ -Differential includes bleeding due to blood thinner use, coagulopathy, trauma, not an all-inclusive list EKG interpreted by me (3pts min.). @ -As above X-rays interpreted by me (1pt min.). @ -None done CT interpreted by me (1pt min.). @ -None done U/S interpreted by me (1pt. min.). @ -None done What testing was considered but not performed or refused? (CT, X-rays, U/S, labs)? Why? @ -None What meds were considered but not given or refused? Why? @ -None Did you discuss the management of the patient with other professionals (professionals i.e. , PA, SUPERVISOR SILVERING DEPARTMENT, lab, RT, psych nurse, social service agency director, building stonecutter, teacher, real estate utilization officer, ed case manager)? Give summary @ -No Was smoking cessation discussed for >3mins.? @ -No Was critical care preformed (if so, how long)? @ -No Were there social determinants of health that impacted care today? How? (Homelessness, low income, unemployed, alcoholism, drug addiction, transportation, low edu. Level, literacy, decrease access to med. care, snf, rehab)? @ -No Was there de-escalation of care discussed even if they declined (Discuss DNR or withdrawal of care, Hospice)? DNR status @ -No What co-morbidities impacted this encounter? (DM, HTN, Smoking, COPD, CAD, Cancer, CVA, ARF, Chemo, Hep., AIDS, mental health diagnosis, sleep apnea, morbid obesity)? @ -None Was patient admitted / discharged? Hospital course, mention meds given and route, prescriptions, significant lab abnormalities, going to OR and other pertinent info. @ -74-year-old female presenting with chief complaint of bleeding from her skin biopsy site. She had a biopsy and skin graft performed earlier today by her national expansion recruiter. Patient is on warfarin. Patient required TXA, Gelfoam, let solution. Patient was also given 5 mg of hydralazine due to elevated blood pressure. Afterwards we applied a dressing and patient had no further bleeding. She is following up with her national expansion recruiter in the morning. Discharge. Follow-up with PCP. Report back to ER with any new or worsening symptoms. Discussed return parameters and answered all questions. Patient conveyed verbal understanding and agreed to the plan. I discussed this case in detail with my attending Dr. Whitt Undiagnosed new problem with uncertain prognosis? @ -No Drug Therapy requiring intensive monitoring for toxicity (Heparin, Nitro, Insulin, Cardizem)? @ -No Were any procedures done? @ -No Diagnosis/symptom? @ -bleeding from surgical site Acute, or Chronic, or Acute on Chronic? @ -Acute Uncomplicated (without systemic symptoms) or Complicated (systemic symptoms)? @ -Uncomplicated Side effects of treatment? @ -No Exacerbation, Progression, or Severe Exacerbation? @ -No Poses a threat to life or bodily function? How? (Chest pain, [place], [place], pneumonia, PE, COPD, DKA, ARF, appy, cholecystitis, CVA, Diverticulitis, Homicidal, Suicidal, threat to staff... and all critical care pts) @ -Unlikely Disposition Clinical Impression: Post-op bleeding Disposition: HOME SELF-CARE Condition: Good Additional Instructions: Follow-up with your national expansion recruiter. Report back to ER with any new or worsening symptoms. Is patient prescribed a controlled substance at d/c from ED?: No Referrals: Elizabeth Rutledge MD [Primary Care Provider] - 1-2 days Time of Disposition: 01:58
[2025-01-12 02:03] VITALS: BP 136/62; PULSE 69; RESP 16; TEMP 97.9
== END 2025-01-12 02:05 | disposition home or self-care (01) ==
LOC: EC 23:06
DX: L76.22 Postprocedural hemorrhage of skin and subcutaneous tissue following other procedure (principal); Z79.01 Long term (current) use of anticoagulants
CPT/HCPCS: 99283; 96374; J0360

== ENCOUNTER → 2025-01-24 | Outpatient (CLI) | payer MEDICARE ==
--- NOTE | 2025-01-24 14:35 | US ---
EXAMINATION TYPE: US venous doppler duplex LE RT DATE OF EXAM: 01/24/2025 1:04 PM COMPARISON: MR 08/24/24 CLINICAL INDICATION: Female, 74 years old with history of R60.0 LOCALIZED EDEMA; Edema after knee inj ection 1 month prior, Pain TECHNIQUE: The lower extremity deep venous system is examined utilizing real time linear array sonog josselyn with graded compression, color doppler sonography, and spectral doppler. SIDE PERFORMED: Right FINDINGS: VESSELS IMAGED: Common Femoral Vein Deep Femoral Vein Greater Saphenous Vein * Femoral Vein Popliteal Vein Small Saphenous Vein * Proximal Calf Veins (* superficial vessels) Right Leg: Negative for DVT, Color Doppler imaging shows patency of the vessels. Spectral waveforms are within normal limits. exam limited by patient pain, edema and habitus Gonzalez cyst again seen similar to on prior MR IMPRESSION: No ultrasound evidence for deep venous thrombosis. [facility], Workstation: [id number], 01/24/2025 2:32 PM
== END | disposition home or self-care (01) ==
LOC: RADUSWWP 12:30
PROVIDERS: ATTEND Family Medicine
DX: R60.0 Localized edema (principal)

== ENCOUNTER → 2025-02-09 | Outpatient (CLI) | payer MEDICARE ==
[2025-02-09 15:29] LABS: INR 2.7 (<1.2); Prothrombin Time 26.9 sec (10.0-12.5)
== END | disposition home or self-care (01) ==
LOC: LABWHC1 14:45
PROVIDERS: ATTEND Family Medicine
DX: I48.20 Chronic atrial fibrillation, unspecified (principal)
CPT/HCPCS: 36415; 85610

== ENCOUNTER → 2025-03-08 | Outpatient (CLI) | payer MEDICARE ==
--- NOTE | 2025-03-08 15:36 | US ---
EXAMINATION TYPE: US pelvic complete DATE OF EXAM: 03/08/2025 COMPARISON: NONE CLINICAL INDICATION: Female, 75 years old with history of R60.0 LOCALIZED EDEMA; Leaky bladder TECHNIQUE: Transabdominal (TA). Transabdominal grayscale sonographic images of the pelvis were acquired. Transvaginal sonographic im ages were attempted but probe was not able to be inserted due to patient tolerance Doppler imaging: Not performed. FINDINGS: Date of LMP: Unknown EXAM MEASUREMENTS: Uterus: 6.4 x 5.2 x 5.9 cm Endometrial Stripe: 1.7 cm Right Ovary: 3.2 x 2.1 x 2.7 cm Left Ovary: 2.6 x 2.0 x 1.9 cm 1. Uterus: Anteverted Heterogenous overall; limited visualization due to patient body habitus 2. Endometrium: ? Fluid and polyp within, limited visualization due to patient body habitus. 3. Right Ovary: Limited visualization due to patient body habitus 4. Left Ovary: Limited visualization due to patient body habitus 5. Bilateral Adnexa: wnl 6. Posterior cul-de-sac: wnl IMPRESSION: 1. The uterus is heterogeneous in appearance which is nonspecific. No focal fibroid. 2. Small amount of fluid within the endometrium. A small polyp is not excluded. Consider follow-up cl inical exam\MRI. O-RADS 2021 [email or web address] [email or web address], , 03/08/2025 3:34 PM
== END | disposition home or self-care (01) ==
LOC: RADUSWWP 15:01
PROVIDERS: ATTEND Family Medicine
DX: R60.0 Localized edema (principal)
CPT/HCPCS: 76856